=== PATIENT | male | born 1950 | race Caucasian/White ===

== ENCOUNTER 2024-07-29 12:41 | Inpatient (IN) | payer OTHER ==
[2024-07-29 12:47] VITALS: BMI 22.9
[2024-07-29 13:24] LABS: HEMATOCRIT 39.2 % (35.4-49); HEMOGLOBIN 12.9 GM/dL (11.7-16.9); MCH 32.7 pg (25.7-33.7); MCHC 32.9 g/dl (32.0-35.9); MEAN CELL VOLUME 99.4 fl (80-96); MEAN PLT VOLUME 6.9 fl (7.5-11.1); PLATELET COUNT 333 10^3/uL (134-434); RBC 3.94 M/mm3 (4.00-5.60); RDW 16.1 % (11.9-15.9); WHITE BLOOD COUNT 13.9 K/mm3 (4.0-10.0)
[2024-07-29 13:38] LABS: CHLORIDE 100 mmol/L (98-107); SODIUM 130 mmol/L (136-145)
[2024-07-29 13:40] LABS: CALCIUM 8.9 mg/dL (8.5-10.1)
[2024-07-29 13:41] LABS: BLOOD UREA NITROGEN 40.6 mg/dL (7-18); CO2 22 mmol/L (21-32); GLUCOSE,RANDOM 90 mg/dL (74-106); MAGNESIUM 2.3 mg/dL (1.8-2.4)
[2024-07-29 13:44] LABS: CREATININE 1.9 mg/dL (0.55-1.3); PHOSPHOROUS 3.8 mg/dL (2.5-4.9); SGOT/AST 64 U/L (15-37); SGPT/ALT 54 U/L (13-61)
[2024-07-29 13:45] LABS: BILIRUBIN,TOTAL 0.5 mg/dL (0.2-1)
[2024-07-29 13:46] LABS: TOT PROT 6.6 g/dl (6.4-8.2)
[2024-07-29 13:47] LABS: ALK PHOS 107 U/L (45-117)
[2024-07-29 14:09] LABS: ANION GAP 8 mmol/L (4-13); POTASSIUM 7.4 mmol/L (3.5-5.1)
[2024-07-29 14:20] LABS: ANISOCYTOSIS 0; HELMET CELLS 0; HOWELL-JOLLY BODIES 0; MACROCYTOSIS 0; OVALOCYTE 0; ROULEAU 0; SICKELED CELLS 0; TARGET CELLS 0; TEAR DROP CELLS 0; TOXIC GRANULATION 0
[2024-07-29 14:25] LABS: VENOUS BASE EXCESS 0.9 mmol/L (-2-2); VENOUS O2 SATURATION 25.4 % (70-80); VENOUS PCO2 40.1 mmHg (38-52); VENOUS PH 7.419 (7.310-7.410)
[2024-07-29] MEDS ORDERED: DEXTROSE 50%-WATER 25 GM/50 ML DISP.SYRIN ONE (14:37)
[2024-07-29] MEDS ORDERED: CALCIUM GLUC IN NACL, ISO-OSM 1 GM/50 ML BAG IVPB ONE (14:37)
[2024-07-29] MEDS ORDERED: SODIUM ZIRCONIUM CYCLOSILICATE (LOKELMA) 10 GM PACKET ONE (14:37)
[2024-07-29] MEDS ORDERED: INSULIN REGULAR HUMAN 100 UNITS/ML *VIAL ONE (14:38)
[2024-07-29 15:01] LABS: POTASSIUM 5.6 mmol/L (3.5-5.1)
[2024-07-29 15:03] LABS: CALCIUM 8.6 mg/dL (8.5-10.1)
[2024-07-29 15:04] LABS: ALBUMIN 2.8 g/dl (3.4-5.0); BLOOD UREA NITROGEN 38.6 mg/dL (7-18)
[2024-07-29 15:07] LABS: CREATININE 1.7 mg/dL (0.55-1.3)
[2024-07-29 15:08] LABS: BILIRUBIN,TOTAL 0.4 mg/dL (0.2-1); TOT PROT 6.1 g/dl (6.4-8.2)
[2024-07-29] MEDS: SODIUM CHLORIDE 500 ML IV SCH (15:23)
[2024-07-29 15:45] LABS: POTASSIUM 5.1 mmol/L (3.5-5.1)
[2024-07-29 15:46] LABS: CALCIUM 8.3 mg/dL (8.5-10.1)
[2024-07-29 15:50] LABS: CREATININE 1.8 mg/dL (0.55-1.3)
[2024-07-29] MEDS: CALCIUM GLUC IN NACL, ISO-OSM 1 GM/50 ML BAG IVPB ONE (17:27)
[2024-07-29] MEDS: INSULIN REGULAR HUMAN 100 UNITS/ML *VIAL IVPUSH ONE (17:27)
[2024-07-29] MEDS: DEXTROSE 50%-WATER - 25 GM/50 ML VIAL IVPUSH ONE (17:27)
[2024-07-29] MEDS: SODIUM ZIRCONIUM CYCLOSILICATE (LOKELMA) 5 GM PACKET PO SCH (17:27)
[2024-07-29] MEDS ORDERED: CEFEPIME 2 GM/100 ML BAG IVPB ONE (17:32)
[2024-07-29] MEDS: CEFEPIME 2 GM in DEXTROSE 5%-WATER 100 ML IVPB ONE (17:56)
[2024-07-29] MEDS: DAPSONE 100 MG TABLET PO SCH (17:57)
[2024-07-29] MEDS ORDERED: ONDANSETRON 4 MG TABLET PO PRN (18:14)
[2024-07-29] MEDS ORDERED: VANCOMYCIN 1 GRAM (PRE-DOCKED) 1,000 MG/250 ML BAG IVPB ONE (18:29)
[2024-07-29] MEDS: VANCOMYCIN 1,000 MG in DEXTROSE 5%-WATER - 250 ML IVPB ONE (18:44)
[2024-07-29] MEDS ORDERED: predniSONE 20 MG TABLET (UD) ONE (19:00)
[2024-07-29] MEDS: LACTATED RINGERS SOLUTION 1,000 ML/1,000 ML INFUS.BAG IV SCH (19:10)
[2024-07-29] MEDS: predniSONE 20 MG TABLET (UD) PO SCH (19:10)
[2024-07-29 21:18] VITALS: RESP 18
[2024-07-30] MEDS: HEPARIN NA (PORCINE) 5,000 UNITS/ML 1ML VIAL SQ SCH (00:57)
[2024-07-30] MEDS: ATORVASTATIN CA 80 MG TABLET (FP) PO SCH (00:57)
[2024-07-30] MEDS: MELATONIN 1 MG TABLET PO SCH (00:57)
[2024-07-30] MEDS ORDERED: ATORVASTATIN CA 80 MG TABLET (FP) ONE (00:59)
[2024-07-30] MEDS ORDERED: HEPARIN NA (PORCINE) 5,000 UNITS/ML 1ML VIAL ONE ×2 (00:59→09:51)
[2024-07-30] MEDS ORDERED: MELATONIN 5 MG TABLETS ONE (00:59)
[2024-07-30 06:55] VITALS: TEMP 98
[2024-07-30 07:18] LABS: BASO % 0.2 % (0-2.0); EOS % 1.6 % (0-4.5); HEMATOCRIT 33.1 % (35.4-49); LYMPH % 3.7 % (8-40); MCHC 33.3 g/dl (32.0-35.9); MEAN PLT VOLUME 7.2 fl (7.5-11.1); MONO % 6.5 % (3.8-10.2); PLATELET COUNT 305 10^3/uL (134-434); RBC 3.35 M/mm3 (4.00-5.60); RDW 16.5 % (11.9-15.9); WHITE BLOOD COUNT 13.4 K/mm3 (4.0-10.0)
[2024-07-30] MEDS ORDERED: TAMSULOSIN HCL 0.4 MG CAP ONE (07:24)
[2024-07-30] MEDS: TAMSULOSIN HCL 0.4 MG CAP PO SCH (07:29)
[2024-07-30 07:53] LABS: BLOOD UREA NITROGEN 32.3 mg/dL (7-18); CALCIUM 8.7 mg/dL (8.5-10.1)
[2024-07-30 07:57] LABS: CREATININE 1.5 mg/dL (0.55-1.3)
[2024-07-30] MEDS ORDERED: ASPIRIN COATED 81 MG TABLET.EC ONE (09:50)
[2024-07-30] MEDS ORDERED: PANTOPRAZOLE 40 MG TABLET PO ONE (09:50)
[2024-07-30] MEDS ORDERED: metoPROLOL SUCCINATE 25 MG TAB.SR.24H (FP) PO ONE (09:51)
[2024-07-30] MEDS: ASPIRIN COATED 81 MG TABLET.EC PO SCH (10:08)
[2024-07-30] MEDS: PANTOPRAZOLE 40 MG TABLET PO SCH (10:08)
[2024-07-30] MEDS: metoPROLOL SUCCINATE 25 MG TAB.SR.24H (FP) PO SCH (10:09)
[2024-07-30 11:20] VITALS: BP 108/63; PULSE 78
[2024-07-30] MEDS: SULFAMETHOXAZOLE/TRIMETHOPRIM 320 MG in DEXTROSE 5%-WATER - 500 ML IVPB SCH (14:16)
[2024-07-30 23:54] LABS: N-TERMINAL BNP 1008.4 pg/ml (5-125)
== END 2024-07-30 16:41 | disposition home or self-care (01) | DRG 683 ==
LOC: JER 12:41 → JERBED 16:46
PROVIDERS: ADMIT Internal Medicine
DX: N17.9 Acute kidney failure, unspecified (principal); E87.1 Hypo-osmolality and hyponatremia; I12.9 Hypertensive chronic kidney disease with stage 1 through stage 4 chronic kidney disease, or unspecified chronic kidney disease; C67.9 Malignant neoplasm of bladder, unspecified; N18.9 Chronic kidney disease, unspecified; I25.10 Atherosclerotic heart disease of native coronary artery without angina pectoris; E78.5 Hyperlipidemia, unspecified; E87.5 Hyperkalemia; N40.0 Benign prostatic hyperplasia without lower urinary tract symptoms
CPT/HCPCS: 0241U-QW; 36415; 71045-TC-FY; 80048; 80053; 82803; 83735; 83880; 84100; 84484; 85025; 87040; 93005; 93010; 99285-25; J1644